=== PATIENT | male | born 2000 ===

== ENCOUNTER 2020-01-28 21:45 | Emergency (ER) | payer SELFPAY ==
[~2020-01-28] VITALS: Ht 188 cm; Wt 81.8 kg
--- NOTE | 2020-01-28 23:00 | NUR ---
PT WANTS TO LEAVE. PER PT CAN LEAVE IF HE HAS A RIDE. MULTIPLE ATTEMPTS TO REACH SO HAVE BEEN MADE. PT TOO INTOXICATD TO LEAVE AT THIS TIME.
--- NOTE | 2020-01-28 23:25 | NUR ---
PT SLEEPING IN NAD. EVEN RISE AND FALL OF CHEST OBSERVED. PT ABLE TO LEAVE WHEN SOBER PER .
--- NOTE | 2020-01-29 00:29 | NUR ---
PT SLEEPING. EVEN RISE AND FALL OF CHEST OBSERVED. PT HAS NO NEEDS AT THIS TIME.
--- NOTE | 2020-01-29 03:02 | NUR ---
PT SLEEPING. PT REQUIRES STRONG VERBAL STIMULI TO AWAKEN BUT PROMPTLY RETURNS TO SLEEP. NAD. VSS.
--- NOTE | 2020-01-29 04:30 | NUR ---
pt awoken and ready for dc. pt ambulates with steady gait. pt requesting taxi to [facility] [employer]. pt agreeable to taxi voucher to drop in [facility]. pt denies medical complaints.
[2020-01-29 04:31] VITALS: BP 106/74
== END 2020-01-29 04:49 | disposition home or self-care (01) ==
LOC: EDBD 21:45 → ED 01-29 04:25
DX: F10.120 Alcohol abuse with intoxication, uncomplicated (principal); Y90.9 Presence of alcohol in blood, level not specified
CPT/HCPCS: 99283